=== PATIENT | female | born 1995 | race Caucasian/White ===

== ENCOUNTER 2023-07-08 11:12 | Observation (INO) | payer MEDICAID, SELFPAY ==
[2023-07-08] VITALS (11 sets, daily range): BP systolic 86–114; BP diastolic 36–80; PULSE 63–89; RESP 16–22; TEMP 36.3–36.9; O2SAT 97–99; BMI 24.8
--- NOTE | 2023-07-08 12:13 | DI.US_ITS ---
Exam(s) US PELVIS EXAM: US PELVIS CLINICAL HISTORY: rlq pain hx of appy tx with abx, eval ovary/append. TECHNIQUE: Transabdominal pelvic ultrasound was performed using standard protocol. COMPARISON: No exams were available for comparison FINDINGS: UTERUS: Position: Anteverted. Size: 8.0 long by 3.8 AP by 4.2 transverse cm Endometrium: 0.3 cm. Normal for patient's menstrual status. There is an IUD which is in good position . Myometrium: Unremarkable. Cervix: Unremarkable. OVARIES: Right: 2.9 x 2.1 x 1.4 cm Cyst or mass: No suspicious cystic or solid masses. Left: 3.1 x 3.0 x 3.0 cm Cyst or mass: No suspicious cystic or solid masses. DOPPLER: Color: Symmetric and uniform flow to both ovaries. CUL-DE-SAC: Free fluid: None. Other: The right lower quadrant was evaluated sonographically. The appendix is not visualized on thi s examination.. IMPRESSION: 1. Normal-appearing uterus with endometrial stripe within normal limits. 2. Unremarkable bilateral ovaries. 3. The IUD is in good position. 4. The appendix is not visualized on this examination. DATA REPOSITORY:
--- NOTE | 2023-07-08 13:00 | DI.CT_ITS ---
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 CONTRAST MATERIAL: Intravenous: Omnipaque 350 Contrast volume:100 mL Oral: No COMPARISON: US US PELVIS from 07/08/2023 FINDINGS: ABDOMEN: Lung Bases: Normal where visualized. Liver: Normal density. No measurable mass. Portal, Superior Mesenteric, and Splenic Veins: Unremarkable. Gallbladder and Biliary Tract: No radiodense calculus or dilation. Pancreas: Normal density, no abnormal calcifications or inflammatory process. Spleen: Normal. Adrenals: No masses seen. Kidneys: Normal size, contour and axis. No radiodense stones or obstructive uropathy. No masses seen. Abdominal Aorta: Abdominal portion non-dilated. Bowel: No obstruction or bowel wall thickening. The appendix measures 1.1 cm in diameter with an enha ncing wall and Lillie appendiceal inflammation. There is an a small appendicoliths seen in the mid saida endix. No abscess is seen. Peritoneal Cavity: There is a trace amount of free fluid in the cul-de-sac. No free air. Lymph Nodes: Mildly enlarged lymph nodes are seen in the right lower quadrant. These are likely reac tive. Bones: Within normal limits for the patient's age. Soft Tissues: Unremarkable. PELVIS: Bladder: Symmetric distention, no gross wall thickening. Reproductive Organs: There is an IUD which is in good position. There is a 3.5 cm left ovarian cyst. Lymph Nodes: Within normal limits. Bones: Within normal limits for the patient's age. IMPRESSION: 1. Findings of an acute appendicitis. No abscess or free air. 2. Findings were discussed with Richa Peguero at 2:35 p.m. on 07/08/2023. RADIATION DOSE DELIVERED: 914.33mGy.cm Total DLP DATA REPOSITORY: All CT scans at this facility are submitted to the National Radiology Data Registry (NRDR) Dose Index Registry (DIR) with the [employer] (ACR). RADIATION OPTIMIZATION: All CT scans at this facility use at least one of these dose optimization te chniques: automated exposure control; mA and/or kV adjustment per patient size (includes targeted exa ms where dose is matched to clinical indication); or iterative reconstruction.
[2023-07-08 13:37] LABS: Abs Immature Grans 0.03 10^3/uL (0.0-0.06); Absolute Basophil Count 0.04 10^3/uL (0.0-0.2); Absolute Eosinophil Count 0.03 10^3/uL (0.0-0.7); Absolute Lymphocyte Count 2.77 10^3/uL (1.2-3.4); Absolute Monocyte Count 0.65 10^3/uL (0.1-0.8); Basophils % 0.3 %; Eosinophils % 0.2 %; HCT 44.1 % (36.0-46.0); HGB 14.2 g/dL (11.2-15.7); Immature Grans % 0.2 %; Lymphocytes % 19.9 %; MCH 27.4 pg (27.0-33.0); MCHC 32.2 % (32.0-36.0); MCV 85 fL (80-95); MPV 10.2 fL (8.0-11.0); Monocytes % 4.7 %; Neutrophils % 74.7 %; Platelet Count 296 10^3/uL (130-400); RBC 5.19 10^6/uL (3.93-5.22); RDW 13.8 % (11.7-14.6); RDW-SD 42.9 fL; WBC 13.92 10^3/uL (4.4-10.8)
[2023-07-08 13:39] LABS: Bilirubin Negative (Negative); Blood Negative (Negative); Clarity Clear (Clear); Glucose Negative (Negative); Ketones Negative (Negative); Leukocyte Esterase Negative (Negative); Nitrite Negative (Negative); Urobilinogen 0.2 mg/dL (Up to 0.2)
[2023-07-08 13:48] LABS: ALT 24 U/L (14-59); AST 13 U/L (15-37); Albumin 4.2 g/dL (3.4-5.0); Alkaline Phosphatase 112 U/L (46-116); Anion Gap 9.2 mmol/L (3-11); BUN 13 mg/dL (7-18); Bilirubin, Total 0.5 mg/dL (0.2-1.0); C-Reactive Protein 1.22 mg/dL (<or=0.5); CO2 27.8 mmol/L (21.0-32.0); CREATININE 0.7 mg/dL (0.55-1.02); Calcium 9.3 mg/dL (8.5-10.1); Chloride 104 mmol/L (98-107); Estimated GFR 121.49 (mL/min/1.73m2); Glucose 88 mg/dL (74-106); Potassium 3.9 mmol/L (3.5-5.1); Sodium 141 mmol/L (136-145); Total Protein 8.7 g/dL (6.4-8.2)
[2023-07-08 14:03] LABS: HCG Qual (Serum) Negative
[2023-07-08] MEDS: Normal Saline - Diluent 50 ML VIAL IJ (14:09)
[2023-07-08] MEDS: Omnipaque 350 MG/ML 500 ML BTL-Imaging package 100 ML IJ (14:10)
[2023-07-08] MEDS: Normal Saline 1,000 ML 1000 ML IV (14:56)
[2023-07-08] MEDS: cefTRIAXone 1 GM/50 ML BAG IVPB (14:57)
--- NOTE | 2023-07-08 15:25 | W.ED.GENAD ---
Discharge Plan Disposition Condition: Serious Discharge Details Chief Complaint: Abd Prob Clinical Impression: Acute appendicitis Primary Care Provider: Unknown,Unknown ED Provider: Richa Peguero Home Meds and New Rx's Prescriptions: No Action PNV cmb#95-ferrous fumarate-FA [ Multivitamins] 28 mg iron- 800 mcg tablet 1 tab PO DAILY HPI General Date/Time Provider Initiated Documentation: 07/08/23 12:04. HPI Narrative: This 27-year-old female presents with right lower quadrant pain which started while she was at work several hours prior to arrival. History of appendicitis years ago which was treated with IV antibiotics at [facility]. States she is 8 months and denies chance of . Still actively breast-feeding. Denies any vaginal discharge. Denies any nausea or vomiting. Start the pain or short period denies fever or chills. Related Data Home Medications Medication Instructions Recorded Confirmed vit no.95-ferrous 1 tab PO DAILY 07/08/23 07/08/23 fumarate 28 mg-folic acid 800 mcg tablet ( Multivitamins) Allergies Allergy/AdvReac Type Severity Reaction Status Date / Time amoxicillin Allergy Mild Hives Verified 07/08/23 13:24 sulfamethoxazole Allergy Mild Other (See Verified 07/08/23 13:24 [From Bactrim] Comment) trimethoprim [From Bactrim] Allergy Mild Other (See Verified 07/08/23 13:24 Comment) General Stated Complaint: Abd Prob HUI: 3 Exam Narrative Exam Narrative: Alert and oriented 27-year-old female no icterus, lungs clear to auscultation, cardiac rate rhythm regular, McBurney's point tenderness, no rebound or guarding, no CVA tenderness, no pallor, alert and oriented x 4, distal pulses intact Course Vital Signs Vital signs: Vital Signs Temperature 36.9 C 07/08/23 11:16 Pulse 89 07/08/23 11:16 Respiratory Rate 16 07/08/23 11:16 Blood Pressure 110/80 07/08/23 11:16 Pulse Oximetry 99 07/08/23 11:16 Temperature 36.9 C 07/08/23 11:27 Temperature Source Temporal Artery Scan 07/08/23 11:27 Pulse 74 07/08/23 15:03 Respiratory Rate 16 07/08/23 11:27 Respiratory Effort Normal 07/08/23 11:27 Blood Pressure 114/70 07/08/23 15:03 Blood Pressure Mean 84 07/08/23 15:03 Blood Pressure Position Sitting 07/08/23 15:03 Pulse Oximetry 98 07/08/23 15:03 Oxygen Delivery Method Room Air 07/08/23 11:27 Oxygen Flow Rate 0 07/08/23 11:27 Pain Level 3 07/08/23 11:27 Lab/Test Results Lab/Test Results: Laboratory Tests Range/Units 07/08/23 07/08/23 13:12 13:20 WBC (4.4-10.8) 10^3/uL 13.92 H RBC (3.93-5.22) 10^6/uL 5.19 Hgb (11.2-15.7) g/dL 14.2 Hct (36.0-46.0) % 44.1 MCV (80-95) fL 85 MCH (27.0-33.0) pg 27.4 MCHC (32.0-36.0) % 32.2 RDW (11.7-14.6) % 13.8 Plt Count (130-400) 10^3/uL 296 MPV (8.0-11.0) fL 10.2 Immature Gran % % 0.2 Neutrophils % % 74.7 Lymphocytes % % 19.9 Monocytes % % 4.7 Eosinophils % % 0.2 Basophils % % 0.3 Nucleated RBC % (0.0-0.3) % 0.0 Absolute Neutrophils (1.2-6.7) 10^3/uL 10.40 H Absolute Lymphocytes (1.2-3.4) 10^3/uL 2.77 Absolute Monocytes (0.1-0.8) 10^3/uL 0.65 Absolute Eosinophils (0.0-0.7) 10^3/uL 0.03 Absolute Basophils (0.0-0.2) 10^3/uL 0.04 Sodium (136-145) mmol/L 141 Potassium (3.5-5.1) mmol/L 3.9 Chloride (98-107) mmol/L 104 Carbon Dioxide (21.0-32.0) mmol/L 27.8 Anion Gap (3-11) mmol/L 9.2 BUN (7-18) mg/dL 13 Creatinine (0.55-1.02) mg/dL 0.7 Est GFR (CKD-EPI 2021) (mL/min/1.73m2) 121.49 Glucose (74-106) mg/dL 88 Calcium (8.5-10.1) mg/dL 9.3 Total Bilirubin (0.2-1.0) mg/dL 0.5 AST (15-37) U/L 13 L ALT (14-59) U/L 24 Alkaline Phosphatase (46-116) U/L 112 C-Reactive Protein (<or=0.5) mg/dL 1.22 H Total Protein (6.4-8.2) g/dL 8.7 H Albumin (3.4-5.0) g/dL 4.2 Serum HCG, Qual Negative Urine Color (Yellow) Yellow Urine Clarity (Clear) Clear Urine pH (5-8) 7.0 Ur Specific [place] (1.005-1.025) 1.010 Urine Protein (Neg-Trace) mg/dL Negative Urine Ketones (Negative) mg/dL Negative Urine Blood (Negative) Negative Urine Nitrite (Negative) Negative Urine Bilirubin (Negative) Negative Urine Urobilinogen (Up to 0.2) mg/dL 0.2 Ur Leukocyte Esterase (Negative) Negative Urine Glucose (Negative) mg/dL Negative POC- Test(urine) Negative Medical Decision Making 27-year-old female with history of appendicitis treated with IV antibiotics 2 years ago now presenting with right lower quadrant pain which feels similarly. Patient with ultrasound that is inconclusive but equivocal appendix. Will order CT which is acute appendicitis. Leukocytosis at 13,000, mild elevation in CRP, otherwise stable. Allergic to amoxicillin will treat with ceftriaxone and Flagyl. Patient received 1 L of fluid and IV Tylenol for pain. She has been n.p.o. since 830 this morning and is agreeable to admission at this time. test negative. Case discussed with Dr. Pressley who will admit patient to her service. Will remain n.p.o. Quality:SDOH Health Related Social Needs: No Data to Display PFSH All Active Problems (Updated 07/08/23 @ 15:25 by ANGELINA Lopez) Acute appendicitis (Acute) Social History Smoking/Tobacco Use Status: Never Smoking risk assessment performed?: Yes Alcohol Intake: never Substance use type: does not use Housing: apartment
[2023-07-08] MEDS: metroNIDAZOLE 500 MG/100 ML BAG 100 MG IVPB (15:29)
[2023-07-08] MEDS: ACETAMINOPHEN 1,000 MG/100 ML BTL 400 MG IVPB (16:45)
--- NOTE | 2023-07-08 17:23 | LC.LAC2 ---
Note Note: Pt is admitted to Med/Surg. Answered questions about breastmilk storage. Pt has 3 medications: Results Weight/I&O Weight Change: Weight 74.1 kg I&O: 07/07/23 07/07/23 07/08/23 07/08/23 11:59 23:59 11:59 23:59 Intake Total 1260 / 1260 Balance 1260 / 1260 Intake: IV 1260 / 1260 Other: Urine Appearance Clear Weight 77.111 kg 74.1 kg
--- NOTE | 2023-07-08 17:58 | W.PM.HP.N ---
Date of service: 07/08/23 Time of Service: 17:58 Assessment and Plan Assessment and plan (1) Acute appendicitis: Status: Acute Assessment and plan: Informed consent is obtained for the procedural (explained in simple layman's terms that the pt and/or family could understand) explaining risks vs benefits and alternatives to the procedure and consequences if we do not do the procedure. Risks include but are not limited to: bleeding, infections, pneumonia, blood clots/DVT/PE, anesthesia (aspiration, damage to teeth/airway/VA/CVA//prolonged mechanical ventilation/PTX/IV infections), damage to bowel, bladder, blood vessels, Damage to solid organs requiring removal. Leakage from anastomosis requiring colostomy/ Wound infections requiring further surgery. Loss of function of limb/ext. (motor or sensory). ?Scarring and disfigurement. Subsequent bowel obstructions from scar tissue.? Chronic pain or numbness from the incision, or hernia. Possible open procedure if minimally invasive procedure is being attempted. We discussed what she could expect during surgery, recovery time and risks see above. Will plan to admit her overnight and hopefully discharge in a.m. We discussed pain management plan. She wants to take minimal narcotics as she is still breast-feeding. We discussed postop care including no lifting over 5 pounds for 2 weeks to avoid hernias. Her 8-month-old is 20 pounds. No work for at least 1 week's time. (2) Breast feeding status of mother: Status: Acute (3) IUD (intrauterine device) in place: Status: Acute (4) [place] teeth removed: History of Present Illness Narrative: Patient is a 27-year-old female who 2 years ago had acute appendicitis that resolved with antibiotics. She never had an interval appendectomy. She woke up this morning with the same pain that she felt with her last appendix. She came into the ER and had a CT scan which showed acute appendicitis with 1 cm appendix. Past medical history is unremarkable except for childbirth and some mild reactive airway as a child. She is a non-smoker. She is still currently breast-feeding. Her only medications are vitamins and an IUD. Her only surgery was wisdom teeth. She had conscious sedation for that. She had a epidural with delivery. Otherwise no problems with anesthesia. There is no family history of complications with anesthesia. Review of Systems All systems reviewed & are unremarkable except as noted in HPI and below PFSH All Active Problems (Updated 07/08/23 @ 18:02 by Sydni Pressley DO) IUD (intrauterine device) in place (Acute) Breast feeding status of mother (Acute) Acute appendicitis (Acute) Surgical History (Updated 07/08/23 @ 18:02 by Sydni Pressley DO) [place] teeth removed Social History Smoking/Tobacco Use Status: Never Smoking risk assessment performed?: Yes Alcohol Intake: never Substance use type: does not use Housing: apartment Meds Allergies and Home Medications Allergies Allergy/AdvReac Type Severity Reaction Status Date / Time amoxicillin Allergy Mild Hives Verified 07/08/23 13:24 sulfamethoxazole Allergy Mild Other (See Verified 07/08/23 13:24 [From Bactrim] Comment) trimethoprim [From Bactrim] Allergy Mild Other (See Verified 07/08/23 13:24 Comment) Home Medications Medication Instructions Recorded Confirmed Type vit no.95-ferrous 1 tab PO DAILY 07/08/23 07/08/23 History fumarate 28 mg-folic acid 800 mcg tablet ( Multivitamins) Exam Narrative Exam Narrative: PHYSICAL EXAM GENERAL APPEARANCE: Alert, healthy appearance, oriented, x 3,? in no acute distress HYDRATION: Well hydrated HEAD, EYES, EARS, NECK, THROAT: Head is normocephalic, pupils equal, round, reactive to light and accommodation, ocular movement intact, sclera clear and no jaundice. ?Dentition intact. LUNGS: normal respiration/normal chest excursion. ?Clear to auscultation bilaterally. ? ?HEART: Regular rate and rhythm. no murmurs ABDOMEN: soft and non-tender to palpation.? Normal bowel sounds.? Possibly small umbilical hernia. Pain localized to the right lower quadrant. No surgical scars. No full peritonitis Results Labs 07/08/23 13:20 07/08/23 13:20 Labs: Laboratory Results - last 24 hr 07/08/23 07/08/23 13:12 13:20 WBC 13.92 H RBC 5.19 Hgb 14.2 Hct 44.1 MCV 85 MCH 27.4 MCHC 32.2 RDW 13.8 Plt Count 296 MPV 10.2 Immature Gran % 0.2 Neutrophils % 74.7 Lymphocytes % 19.9 Monocytes % 4.7 Eosinophils % 0.2 Basophils % 0.3 Nucleated RBC % 0.0 Absolute Neutrophils 10.40 H Absolute Lymphocytes 2.77 Absolute Monocytes 0.65 Absolute Eosinophils 0.03 Absolute Basophils 0.04 Sodium 141 Potassium 3.9 Chloride 104 Carbon Dioxide 27.8 Anion Gap 9.2 BUN 13 Creatinine 0.7 Est GFR (CKD-EPI 2020) 121.49 Glucose 88 Calcium 9.3 Total Bilirubin 0.5 AST 13 L ALT 24 Alkaline Phosphatase 112 C-Reactive Protein 1.22 H Total Protein 8.7 H Albumin 4.2 Serum HCG, Qual Negative Urine Color Yellow Urine Clarity Clear Urine pH 7.0 Ur Specific [place] 1.010 Urine Protein Negative Urine Ketones Negative Urine Blood Negative Urine Nitrite Negative Urine Bilirubin Negative Urine Urobilinogen 0.2 Ur Leukocyte Esterase Negative Urine Glucose Negative Last Vital Signs Temp 36.3 C L 07/08/23 16:11 Pulse 68 07/08/23 16:11 Resp 16 07/08/23 16:11 BP 106/65 07/08/23 16:11 Pulse Ox 98 07/08/23 16:11 Time Spent Time spent with Patient: <40 minutes Time was spent: preparing to see the patient(eg.review tests), obtaining and/or reviewing separately otained hiistory, ordering medications,tests, procedures, referring, communicating with other health healthcare market consultant, indepentently interpreting results, counseling the patient and care coordination
--- NOTE | 2023-07-08 18:05 | ANES.PREOP_ITS ---
General Info Date of Service Date Performed: 07/08/23 Height: 5 ft 8 in Weight: 74.1 kg Body Mass Index (BMI): 24.8 Meds Allergies and Home Medications Allergies Allergy/AdvReac Type Severity Reaction Status Date / Time amoxicillin Allergy Mild Hives Verified 07/08/23 13:24 sulfamethoxazole Allergy Mild Other (See Verified 07/08/23 13:24 [From Bactrim] Comment) trimethoprim [From Bactrim] Allergy Mild Other (See Verified 07/08/23 13:24 Comment) Home Medication Medication Instructions Recorded vit no.95-ferrous 1 tab PO DAILY 07/08/23 fumarate 28 mg-folic acid 800 mcg tablet ( Multivitamins) Current Visit Medications: Current Medications Generic Name Dose Route Start Last Admin Trade Name Man PRN Reason Stop Dose Admin Iohexol 100 ml 07/08/23 14:15 07/08/23 14:10 Omnipaque 350 Mg/Ml 500 Ml Btl-Imaging Package IJ 08/07/23 23:59 100 ml DIRECTED WARREN Administration Sodium Chloride 50 ml 07/08/23 14:15 07/08/23 14:09 Normal Saline - Diluent 50 Ml Vial IJ 50 ml .FOR DI USE WARREN Administration PFSH Active Problems Active Problems: Problem Status Onset Code IUD (intrauterine device) in place Z97.5 Breast feeding status of mother Z39.1 Acute appendicitis K35.80 Surgical History Surgical History (Updated 07/08/23 @ 18:02 by Sydni Pressley DO) [place] teeth removed Tobacco Smoking/Tobacco Use Status: Never Alcohol Alcohol Intake: never Substance Use Substance use type: does not use Vital Signs and Lab Results Vital Signs Most Recent Vital Signs in EMR: Most Recent Vital Signs Temp Pulse Resp BP Pulse Ox 36.3 C L 68 16 106/65 98 07/08/23 16:11 07/08/23 16:11 07/08/23 16:11 07/08/23 16:11 07/08/23 16:11 Point of Care Results Point of Care Results: POC- Test(urine) Negative 07/08/23 13:29 Lab Results 07/08/23 13:20 07/08/23 13:20 Blood Type / Crossmatch: 2 No Data to Display Complete Blood Count: 2 White Blood Count 13.92 10^3/uL (4.4-10.8) H 07/08/23 13:20 Red Blood Count 5.19 10^6/uL (3.93-5.22) 07/08/23 13:20 Hemoglobin 14.2 g/dL (11.2-15.7) 07/08/23 13:20 Hematocrit 44.1 % (36.0-46.0) 07/08/23 13:20 Platelet Count 296 10^3/uL (130-400) 07/08/23 13:20 Complete Metabolic Panel: 2 Sodium 141 mmol/L (136-145) 07/08/23 13:20 Potassium 3.9 mmol/L (3.5-5.1) 07/08/23 13:20 Chloride 104 mmol/L (98-107) 07/08/23 13:20 Carbon Dioxide 27.8 mmol/L (21.0-32.0) 07/08/23 13:20 BUN 13 mg/dL (7-18) 07/08/23 13:20 Creatinine 0.7 mg/dL (0.55-1.02) 07/08/23 13:20 Est GFR (CKD-EPI 2020) 121.49 (mL/min/1.73m2) 07/08/23 13:20 Calcium 9.3 mg/dL (8.5-10.1) 07/08/23 13:20 Albumin 4.2 g/dL (3.4-5.0) 07/08/23 13:20 Glucose 88 mg/dL (74-106) 07/08/23 13:20 C-Reactive Protein 1.22 mg/dL (<or=0.5) H 07/08/23 13:20 Liver Function Panel: 2 Alanine Aminotransferase (ALT/SGPT) 24 U/L (14-59) 07/08/23 13: 20 Aspartate Amino Transf (AST/SGOT) 13 U/L (15-37) L 07/08/23 13: 20 Coagulation Panel: 2 No Data to Display Cardiac Panel: 2 No Data to Display Arterial Blood Gas: 2 No Data to Display Venous Blood Gas: 2 No Data to Display Pancreas Panel: 2 No Data to Display Thyroid Panel: 2 No Data to Display Infectious Disease: 2 No Data to Display Blood Cultures: 2 No Data to Display Toxicology Panel: 2 No Data to Display Panel: 2 Serum HCG, Qualitative Negative 07/08/23 13:20 Anesthesia Assessment and Plan Anesthesia History Personal History: No History of Anesthesia Complications Family History: No Family History of Anesthesia Complications Exercise Tolerance Exercise Tolerance: Metabolic Equivalents>4 Cardiac & Pulmonary Exam Cardiac Exam: Normal S1/S2 Heart Sounds Pulmonary Exam: Clear Bilateral Breath Sounds Implantable Cardiac Device Does patient have a Pacemaker or an ICD?: No Airway Exam Known Difficult Airway: No Mallampati Class: 1 Mouth Opening: Normal (> 3cm) Thyromental Distance: Greater than 3 cm Neck Range of Motion: Full ROM Neck Circumference: Normal Teeth Condition: Normal Dentition ASA Classification ASA Score: ASA 2 Emergency Case?: Yes NPO Status NPO Status: NPO Clears >2 hours, Solids >8 hours Status Status: Negative HCG Anesthesia Plan Resuscitation Status: Full Code Anesthesia Technique: General Anesthesia Airway Planned: Endotracheal Tube Monitors Used: Standard Monitors Preoperative Comments:: 27 yo otherwise healthy female for lap appy.
--- NOTE | 2023-07-08 18:07 | ROE_ITS ---
Date of service: 07/08/23 Time of Service: 19:49 Operative Note Operative Note DATE OF PROCEDURE: 07/08/23 PRE-OP DIAGNOSIS: Acute appendicitis POST-OP DIAGNOSIS: same PROCEDURE: laprascopic appendectomy SURGEON: Sydni Pressley ULTRASONOGRAPHER: Pita Leblanc ANESTHESIA TYPE: Local By Surgeon and General LMA/ETT Refer to Anesthesia Record PATHOLOGY: other COMPLICATIONS: None Patient was transported to: PACU Patient's condition: stable Procedure Description: INDICATIONS: The patient has signs and symptoms compatible with acute appendicitis and is brought to the OR for laparoscopic appendectomy, possible open procedure. Informed consent is obtained for the procedural (explained in simple layman's terms that the pt and/or family could understand) explaining risks vs benefits and alternatives to the procedure and consequences if we do not do the procedure. Risks include but are not limited to:bleeding,infections, pneumonia, blood clots/DVT/PE, anesthesia(aspiration, damage to teeth/airway/[place]/CVA//prolonged mechanical ventilation/PTX/IV infections), damage to bowel, bladder,blood vessels, ureters. Damage to solid organs requiring removal. Infertility. Leakage from anastomosis requiring colostomy. Wound infections requirng further surgery. Scarring and disfigurement. Subsequent bowel obstructions from scar tissue. Possible open procedure if minimaly invsive procedure is being attempted. Abscess and stump appendicitis as well as others. DESCRIPTION OF PROCEDURE: The patient was brought to the operating room suite an d placed in supine position. Anesthesia was administered per the Department of Anesthesia. A Hughes catheter and OG tube are placed. The patient was prepped and draped in the usual sterile fashion using ChloraPrep scrub solution. Pause for the cause was done. 30 mL of 1% buffered was used for local anesthetization. A stab incision was made in the umbilicus and the Veress was inserted. Drop test was positive and insufflation was begun. When 15 mm of pressure was noted on the monitor, the Veress was removed, a #5 port inserted. Camera inserted through the port shows no damage to underlying structures. Bowel, liver and stomach that are visualized are normal in appearance. Pelvic organs are not visualized. The appendix is inflamed, erythematous,enlarged, & distened, but does not appear to have been ruptured. There is no purulent drainage in the pelvis. It is not adhered to any adjacent structures. A 12 mm port was then placed in the suprapubic position under direct visualization following creation of a local field block as well as a second 5 mm port in the LLQ. The appendix is elevated and a rent dissected into the mesentery. The base of the appendix is healthy and will hold robbie. A Endo-SILVINO stapler is placed across the base of the appendix and fired and 2nd stapler placed across the mesentery and fired. The appendix is placed in a bag and brought out. There is no bleeding or enteric leakage from the staple lines. The pt does not require a drain. The abdomen was copiously irrigated with a liter of saline. All saline is evacuated. The scope and ports are removed. Pneumoperitoneum is evacuated. The fascia under the 12 mm port is closed with 0 Vicryl. There was no bleeding from the port sites as when they removed and the pneumoperitoneum evacuated. The wounds were copiously irrigated and closed in 2 layers with 4-0 Monocryl.? Skin glue is used.? Sterile dressings are applied. The patient tolerated the procedure without complication, transferred to the recovery room in stable condition. Family was apprised of patient condition. The patient can be discharged home later today.
[2023-07-08] MEDS: Lactated Ringers 1,000 ML 30 ML IV (18:26)
--- NOTE | 2023-07-08 19:08 | APP_PTH ---
PATIENT: Mitra Swann I LOC: U#:[id number] AGE/SX: 27/F ROOM: RE07/08/[address]: Sydni Pressley : 1995 BED: A DIS: 07/09/2023 SPEC #: [id number] RECD: 07/09/23 12:10 STATUS: LENARD REQ #: [id number] MAGALI: 07/08/23 19:[address]: Sydni Pressley DEPT: Surgical Specimen RECD BY: Richa Aguilar ENTERED: 07/09/23 12:15 SP TYPE: Appendix OTHR DR: Unknown,Unknown Tissues: 1 - APPENDIX NOT INCIDENTAL Procedures: GROSS AND MICRO LEVEL 3 Comments: [id number]
[2023-07-08] MEDS: Lidocaine 1% Multi-Dose W/EPI 1/100,000 50 ML VIAL (19:16)
[2023-07-08] MEDS: fentaNYL 100 MCG/2 ML VIAL IVP ×2 (19:38→19:43)
--- NOTE | 2023-07-08 19:43 | W.ANESPOSTOP ---
Postoperative Evaluation Date, Time and Location Date Performed: 07/08/23 Time Performed: 19:43 Patient Location: PACU Vital Signs Most Recent Imported Vital Signs: Most Recent Vital Signs Temp Pulse Resp BP Pulse Ox 36.7 C 80 19 105/58 L 99 07/08/23 19:40 07/08/23 19:40 07/08/23 19:40 07/08/23 19:40 07/08/23 19:40 Pain Score Most Recent Pain Score: Most Recent Pain Score Pain Level 5 07/08/23 19:40 Assessment Mental Status: Awake (Alert & Oriented to Patient Baseline) Airway and Respiratory Function: Patent airway with normal (patient baseline) respiratory exam Cardiovascular Function: Hemodynamically Stable Hydration Status: Adequately Hydrated Nausea & Vomiting: No Nausea or Vomiting Pain: Pain is tolerable per patient (5/10, getting pain med. ) Peripheral Nerve Block: Patient did not receive a nerve block
[2023-07-08] MEDS: Droperidol 5 MG/2 ML VIAL 0.625 MG IVP (20:23)
[2023-07-08] MEDS: Acetaminophen 500 MG TAB 1000 MG PO (22:09)
[2023-07-09] MEDS: Ketorolac 15 MG/ML VIAL IVP ×2 (00:11→05:41)
[2023-07-09] MEDS: Acetaminophen 500 MG TAB 1000 MG PO (04:12)
--- NOTE | 2023-07-09 07:04 | PGE_ITS ---
Date of Service Date of service: 07/09/23 Time of Service: 07:04 Assessment and Plan Assessment and plan (1) Acute appendicitis: Status: Acute Assessment and plan: We will see how she tolerates a regular breakfast this morning. Assuming echo is okay, we will discharge her home. Subjective Subjective Interval history since last seen: She was able to get some sleep overnight, and pain has been well-controlled with Tylenol. She has an appetite this morning. Exam GI Other: Abdomen is soft and nondistended. She has minimal tenderness around the incision sites, but otherwise feels fine. Objective Last Vital Signs Temp 98.4 F 07/08/23 23:32 Pulse 63 07/08/23 23:32 Resp 18 07/08/23 23:32 BP 98/62 L 07/08/23 23:32 Pulse Ox 97 07/08/23 23:32 Laboratory Results - last 24 hr 07/08/23 07/08/23 13:12 13:20 WBC 13.92 H RBC 5.19 Hgb 14.2 Hct 44.1 MCV 85 MCH 27.4 MCHC 32.2 RDW 13.8 Plt Count 296 MPV 10.2 Immature Gran % 0.2 Neutrophils % 74.7 Lymphocytes % 19.9 Monocytes % 4.7 Eosinophils % 0.2 Basophils % 0.3 Nucleated RBC % 0.0 Absolute Neutrophils 10.40 H Absolute Lymphocytes 2.77 Absolute Monocytes 0.65 Absolute Eosinophils 0.03 Absolute Basophils 0.04 Sodium 141 Potassium 3.9 Chloride 104 Carbon Dioxide 27.8 Anion Gap 9.2 BUN 13 Creatinine 0.7 Est GFR (CKD-EPI 2020) 121.49 Glucose 88 Calcium 9.3 Total Bilirubin 0.5 AST 13 L ALT 24 Alkaline Phosphatase 112 C-Reactive Protein 1.22 H Total Protein 8.7 H Albumin 4.2 Serum HCG, Qual Negative Urine Color Yellow Urine Clarity Clear Urine pH 7.0 Ur Specific [place] 1.010 Urine Protein Negative Urine Ketones Negative Urine Blood Negative Urine Nitrite Negative Urine Bilirubin Negative Urine Urobilinogen 0.2 Ur Leukocyte Esterase Negative Urine Glucose Negative Time Spent with Patient Time Spent with Patient: 25-34 minutes Time was spent: preparing to see the patient(eg.review tests), indepentently interpreting results, counseling the patient and care coordination
--- NOTE | 2023-07-09 07:05 | W.PM.DS.N ---
Date of service: 07/09/23 Time of Service: 07:06 DS: Diagnosis Discharge Diagnosis (1) Acute appendicitis: Asessment and Plan: Discharge home with outpatient office follow Discharge Plan Disposition Patient Disposition: Home Condition: Good Discharge Details Reason For Visit: appendicitis Admit Date/Time: 07/08/23 15:20 Admit Provider: Sydni Pressley Attending Provider: Sydni Pressley Primary Care Provider: Unknown,Unknown Hospital Course Hospital Course: Mitra is 27 years old. She came to the emergency department with abdominal pain. She underwent a CT scan that showed acute appendicitis. She underwent laparoscopic appendectomy, was discharged home the next day. Home Meds and New Rx's Prescriptions: Continued PNV cmb#[id number] fumarate-FA [ Multivitamins] 28 mg iron- 800 mcg tablet 1 tab PO DAILY Discharge Instructions Instructions: Laparoscopic Appendectomy (DC) Additional Instructions: Mitra, it was great meeting you in the hospital, and I hope you make a quick recovery from your appendectomy. Expect some increasing pain over the next day or so as you get up and move around. Otherwise, each day should be a little bit better than the day before it. Should be up and walking every day. I would like you to keep your lifting to less than 10 pounds until we see you in the office on the . You may also get some bruising around the incision sites which is quite common. I would like to know, however, if the skin starts to turn bright red, or if there is any worrisome discharge from the incisions. I added a letter to your file that the nurses should be able to print excusing you from work during your recovery time. Like I said, if you need anything else, please do not hesitate to call the office to let us know. 1. Resume all of your regular medications. 2. Alternate heating pads and ice packs over the incisions as needed for pain 3. Alternate [id number] Tylenol and ibuprofen every 6 hours for the first 2 days. Then use as needed 4. It is okay to shower tonight with warm soapy water over the incision sites. You can keep them open to air if that is comfortable, or use Band-Aids if needed to help protect your clothing. 5. No soaking or tub baths until I see you in the office. 6. No lifting more than 10 pounds until we see you in the office 7. Call the office (or go directly to the emergency room after hours) if you notice any of the following: Develop chills (warm to touch), or if you have a thermometer and your temperature is above 101 Difficulty breathing or difficultly swallowing Persistent vomiting Any bleeding ? exceeding one tablespoon 8. Call your physician if the site where your intravenous was started becomes red, swollen, painful, and warm to touch. Referrals: Mihai Quintana MD [ [facility] STAFF PHYSICIAN] - (July 21 at 8:15 AM) Activity:: No heavy lifting Equipment/Supplies:: No Equipment Needed Diet:: As Tolerated DS: Summary Time Spent with Patient providing and/or coordinating discharge services: Less than 30 minutes Status at Discharge Functional status at discharge: independent ambulation Overall status at discharge: patient is progressing back to baseline Mental Status: mental status grossly normal Speech and Movement: speech and movement normal Mood: congruent mood Affect: normal affect Quality:SDOH Health Related Social Needs: No Data to Display Exam GI Other: Abdomen is soft and nondistended. Incision sites look fine. Psych Mental Status: mental status grossly normal Speech and Movement: speech and movement normal Mood: congruent mood Affect: normal affect DS: Data Vitals/I&O Vitals and I&O: Vital Signs Temperature 98.4 F 07/08/23 23:32 Temperature Source Tympanic 07/08/23 23:32 Pulse 63 07/08/23 23:32 Pulse Rhythm Regular 07/08/23 23:42 Respiratory Rate 18 07/08/23 23:32 Respiratory Effort Normal, Non-Labored 07/08/23 23:42 Respiratory Depth Normal 07/08/23 23:42 Respiratory Pattern Normal 07/08/23 23:42 Blood Pressure 98/62 L 07/08/23 23:32 Blood Pressure Mean 84 07/08/23 15:03 Blood Pressure Position Sitting 07/08/23 15:03 Pulse Oximetry 97 07/08/23 23:32 Oxygen Delivery Method Room Air 07/08/23 23:32 Oxygen Flow Rate 0 07/08/23 23:32 Pain Level 2 07/08/23 22:09 Intake & Output 07/08/23 07/08/23 07/09/23 11:59 23:59 11:59 Intake Total 2132.5 / 2132.5 527.5 / 527.5 Output Total 400 / 400 450 / 450 Balance 1732.5 / 1732.5 77.5 / 77.5 Weight 170 lb 163 lb 5.8 oz Intake: IV 1732.5 / 1732.5 527.5 / 527.5 Oral 400 / 400 Output: Urine 400 / 400 450 / 450 Other: Urine Color Yellow Yellow Urine Appearance Clear Clear Urine Odor Normal Emesis Description None Voiding Methods Toilet Data Completed and Pending Labs on day of discharge: Labs from last 24 hours 07/08/23 07/08/23 13:20 13:12 WBC 13.92 H RBC 5.19 Hgb 14.2 Hct 44.1 MCV 85 MCH 27.4 MCHC 32.2 RDW 13.8 Plt Count 296 MPV 10.2 Immature Gran % 0.2 Neutrophils % 74.7 Lymphocytes % 19.9 Monocytes % 4.7 Eosinophils % 0.2 Basophils % 0.3 Nucleated RBC % 0.0 Absolute Neutrophils 10.40 H Absolute Lymphocytes 2.77 Absolute Monocytes 0.65 Absolute Eosinophils 0.03 Absolute Basophils 0.04 Sodium 141 Potassium 3.9 Chloride 104 Carbon Dioxide 27.8 Anion Gap 9.2 BUN 13 Creatinine 0.7 Est GFR (CKD-EPI 2020) 121.49 Glucose 88 Calcium 9.3 Total Bilirubin 0.5 AST 13 L ALT 24 Alkaline Phosphatase 112 C-Reactive Protein 1.22 H Total Protein 8.7 H Albumin 4.2 Serum HCG, Qual Negative Urine Color Yellow Urine Clarity Clear Urine pH 7.0 Ur Specific [place] 1.010 Urine Protein Negative Urine Ketones Negative Urine Blood Negative Urine Nitrite Negative Urine Bilirubin Negative Urine Urobilinogen 0.2 Ur Leukocyte Esterase Negative Urine Glucose Negative PFSH All Active Problems (Updated 07/09/23 @ 07:06 by Mihai Quintana MD) IUD (intrauterine device) in place (Acute) Breast feeding status of mother (Acute) Medical History (Updated 07/09/23 @ 07:06 by Mihai Quintana MD) Acute appendicitis Surgical History [place] teeth removed Social History Smoking/Tobacco Use Status: Never Smoking risk assessment performed?: Yes Alcohol Intake: never Substance use type: does not use Housing: apartment Time Spent with Patient Time Spent with Patient: <45 minutes Time was spent: preparing to see the patient(eg.review tests), indepentently interpreting results, counseling the patient and care coordination
[2023-07-09 08:06] VITALS: BP 102/60; PULSE 75; RESP 15; TEMP 35; O2SAT 99
== END 2023-07-09 09:45 | disposition home or self-care (01) ==
LOC: ER 15:25 → MS 16:04
PROVIDERS: Admitting Provider Surgery; Emergency Provider Physician Assistant; Visit Provider Surgery
PROC: 0DTJ4ZZ Resection of Appendix, Percutaneous Endoscopic Approach (ICD-10-PCS; CPT 44970; principal; 2023-07-08 18:30)
DX: K35.80 Unspecified acute appendicitis (principal); Z39.1 Encounter for care and examination of lactating mother
CPT/HCPCS: 44970; 36415; 80053; 81025; 96365; 96366; 96367; 96374; 96376; 99285; 74177; 76856; 81003; 84703; 85025; 86140; 88304; G0378; J0131; J0696; J1100; J1790; J1805; J1836; J1885; J2001; J2004; J2405; J2704; J3010